=== PATIENT | female | born 1990 | race Caucasian/White ===

== ENCOUNTER 2023-11-04 11:12 | Emergency (ER) | payer BC ==
[~2023-11-04] VITALS: Ht 162.6 cm; Wt 63.0 kg
[2023-11-04 11:59] LABS: BILIRUBIN,URINE NEGATIVE (Neg); CLARITY,URINE SLIGHTLY CLOUDY (Clear); COLOR,URINE STRAW (Yellow); GLUCOSE, URINE NEGATIVE (Neg); KETONES,URINE NEGATIVE (Neg); LEUKOCYTE ESTERASE ,URINE MODERATE (Neg); NITRITES, URINE NEGATIVE (Neg); OCCULT BLOOD,URINE LARGE (Neg); PROTEIN,URINE NEGATIVE (Neg); UROBILINOGEN,URINE 0.2 E.U/dL (0.2-1.0)
[2023-11-04 12:05] LABS: SQUAMOUS EPITHELIAL CELL,UR MANY /LPF (FEW); UA COLLECTION TYPE CLN CATCH MIDSTREAM
[2023-11-04 12:06] LABS: BACTERIA,URINE 1+ /HPF (Neg); WBC CLUMPS,URINE FEW /HPF (NEGATIVE); WBC,URINE 50-100 /HPF (0-4)
[2023-11-04 12:07] LABS: RBC,URINE 0-2 /HPF (0-2)
[2023-11-04] MEDS: ketorolac trometh 15mg/ml vial 15 MG/ML ML IM ONE (12:36)
[2023-11-04] MEDS: CefTRIAXone 2gm/D5W 50ml BAG 50 ML IV ONE (12:50)
[2023-11-04] MEDS: normal saline 1000ML IV soln IVB ONE (12:50)
[2023-11-04] MEDS: dexamethasone sod phosphate 10mg/ml inj IV STA (13:23)
[2023-11-04 15:17] LABS: URINE HCG NEGATIVE (NEG)
[2023-11-04] MEDS ORDERED: AMIT25TA23 PO (16:01)
[2023-11-04] MEDS ORDERED: CEFU250T95 PO (16:01)
[2023-11-04 16:13] VITALS: BP 122/70; PULSE 78; RESP 16; TEMP 97.6; O2SAT 97
== END 2023-11-04 16:14 | disposition home or self-care (01) ==
LOC: ER 11:12
DX: N39.0 Urinary tract infection, site not specified (principal); R31.9 Hematuria, unspecified; Z79.899 Other long term (current) drug therapy
CPT/HCPCS: 74176; 81001; 81025; 96365; 96372; 96375; 99285; J0696; J1100; J1885; J7030